=== PATIENT | male | born 1940 | race Caucasian/White ===

== ENCOUNTER 2024-12-21 02:44 | Inpatient (IN) | payer OTHER ==
[~2024-12-21] VITALS: Ht 170.2 cm; Wt 68.9 kg
[2024-12-21 02:55] VITALS: O2SAT 97
[2024-12-21 03:21] LABS: BASOPHILS % 0.5 % (0.0-2.0); EOSINOPHILS % 1.4 % (0.0-5.0); HEMATOCRIT. 41.9 % (42.0-52.0); HEMOGLOBIN. 14.4 g/dL (14.0-18.0); LYMPHOCYTES % 24.2 % (20.0-50.0); MEAN PLATELET VOLUME 9.1 fl (7.4-10.4); MONOCYTES % 5.5 % (2.0-8.0); NEUTROPHILS % 68.4 % (40.0-76.0); PLATELET 201 x1000/uL (130-400); RED BLOOD CELL COUNT 4.64 mill/uL (4.7-6.1); RED CELL DISTRIBUTION WIDTH 14.4 % (11.6-14.6)
[2024-12-21 04:03] LABS: CREATININE 0.8 mg/dL (0.6-1.3); UREA NITROGEN BLOOD 25 mg/dL (9-23)
[2024-12-21 04:04] LABS: ASPARTATE AMINOTRANSFERASE 27 IU/L (<34)
[2024-12-21 04:05] LABS: BILIRUBIN DIRECT 0.2 mg/dL (<=3.0); BILIRUBIN TOTAL 0.8 mg/dL (0.1-1.0); PROTEIN TOTAL 6.8 g/dL (6.0-8.3)
[2024-12-21 05:07] LABS: CLARITY URINE CLEAR (CLEAR); COLOR URINE YELLOW (YELLOW); GLUCOSE URINE NEGATIVE (NEGATIVE); KETONES URINE NEGATIVE (NEGATIVE); LEUKOCYTE ESTERASE URINE NEGATIVE (NEGATIVE); NITRITE URINE NEGATIVE (NEGATIVE); OCCULT BLOOD URINE NEGATIVE (NEGATIVE); PH URINE 6.0 (4.5-8.0); PROTEIN URINE TRACE (NEGATIVE); SPECIFIC GRAVITY URINE 1.020 (1.005-1.030); UROBILINOGEN URINE 0.2 E.U./dL (0.2-1.0)
[2024-12-21 05:28] LABS: RBC URINE 0-2 /hpf (0-2); SQUAMOUS EPITHELIAL CELL URINE NONE SEEN /lpf (RARE/1+); WBC URINE 0-2 /hpf (0-2)
[2024-12-21 05:29] LABS: BACTERIA URINE NONE SEEN
[2024-12-21 05:32] LABS: *AMPHETAMINES SCREEN URINE NEGATIVE (NEGATIVE); *BARBITURATES SCREEN URINE NEGATIVE (NEGATIVE); *BENZODIAZEPINES SCREEN URINE NEGATIVE (NEGATIVE); *COCAINE SCREEN URINE NEGATIVE (NEGATIVE); CANNABINOID URINE SCREEN NEGATIVE (NEGATIVE); ECSTASY MDMA SCREEN URINE NEGATIVE (NEGATIVE); METHADONE URINE SCREEN NEGATIVE (NEGATIVE); OPIATES URINE SCREEN NEGATIVE (NEGATIVE); PHENCYCLIDINE URINE SCREEN NEGATIVE (NEGATIVE)
[2024-12-21] MEDS ORDERED: ONDANSETRON HCL 4MG/2ML INJ IV PRN (07:45)
[2024-12-21] MEDS ORDERED: ACETAMINOPHEN 325MG TABLET PO PRN ×2 (07:45)
[2024-12-21] MEDS ORDERED: DEXTROSE 50% WATER 50ML SYRINGE IV PRN (07:45)
[2024-12-21] MEDS ORDERED: CLONIDINE 0.1MG TABLET PO PRN (07:45)
[2024-12-21] MEDS ORDERED: IPRATROPIUM/ALBUTEROL 0.5-3(2.5)MG/3ML NEB HHN PRN (07:45)
[2024-12-21] MEDS ORDERED: GUAIFENESIN 200MG/10ML SUGAR FREE UDC PO PRN (07:45)
[2024-12-21] MEDS ORDERED: DOCUSATE SODIUM 100MG CAPSULE PO PRN (07:45)
[2024-12-21 08:00] VITALS: BP 137/69; PULSE 107; RESP 18; TEMP 36.2; O2SAT 99
[2024-12-21] MEDS: PANTOPRAZOLE 40MG DR TABLET PO SCH (08:56)
[2024-12-21] MEDS: MULTIVITAMINS,THER W-MINERALS TABLET PO SCH (08:57)
[2024-12-21] MEDS: RISPERIDONE 0.5MG TABLET PO SCH ×2 (08:57→21:36)
[2024-12-21] MEDS: THIAMINE HCL 100MG TABLET PO SCH (08:57)
[2024-12-21] MEDS: AMLODIPINE 5MG TABLET PO SCH (08:58)
[2024-12-21] MEDS: ENOXAPARIN 40MG/0.4ML SYR SUBCUT SCH (09:02)
[2024-12-21] MEDS: BLOOD SUGAR DIAGNOSTIC STRIP TEST SCH (09:03)
[2024-12-21] MEDS: INSULIN LISPRO 100 UNITS/ML SUBCUT SCH (09:16)
[2024-12-21 10:00] VITALS: BP 133/69; PULSE 107; RESP 16; TEMP 36.1956
[2024-12-21] MEDS: HALOPERIDOL LACTATE 5MG/ML VIAL IM PRN (10:16)
[2024-12-21 12:32] LABS: INR 1.0
[2024-12-21 12:39] LABS: FOLIC ACID (FOLATE) SERUM > 20.00 ng/mL (>5.38); VITAMIN B12 SERUM 345 pg/mL (211-911)
[2024-12-21] MEDS: OLANZAPINE 10 MG/VIAL IM PRN (15:45)
[2024-12-21 16:00] VITALS: BP 155/75; RESP 20; TEMP 36.3; O2SAT 93
[2024-12-21] MEDS: LORAZEPAM 2MG/ML UD SYRINGE IV PRN (18:11)
[2024-12-21 20:00] VITALS: BP 153/64; PULSE 80; RESP 19; TEMP 36.3; O2SAT 96
[2024-12-21] MEDS ORDERED: OLANZAPINE 10 MG/VIAL IM SCH (20:00)
[2024-12-21] MEDS: TRAZODONE HCL 50MG TABLET PO SCH (21:37)
[2024-12-22] VITALS: BP 144/68; PULSE 103; RESP 20; TEMP 36.3; O2SAT 97
[2024-12-22 04:00] VITALS: BP 144/71; PULSE 95; RESP 19; O2SAT 96
[2024-12-22 08:00] VITALS: BP 140/66; PULSE 79; RESP 17; TEMP 36.5; O2SAT 97
[2024-12-22 12:00] VITALS: BP 130/61; PULSE 82; RESP 16; TEMP 36.5; O2SAT 98
[2024-12-22 13:56] LABS: BASOPHILS % 0.5 % (0.0-2.0); EOSINOPHILS % 1.9 % (0.0-5.0); HEMATOCRIT. 44.4 % (42.0-52.0); HEMOGLOBIN. 15.1 g/dL (14.0-18.0); LYMPHOCYTES % 20.4 % (20.0-50.0); MEAN PLATELET VOLUME 9.1 fl (7.4-10.4); MONOCYTES % 8.1 % (2.0-8.0); NEUTROPHILS % 69.1 % (40.0-76.0); PLATELET 201 x1000/uL (130-400); RED BLOOD CELL COUNT 4.84 mill/uL (4.7-6.1); RED CELL DISTRIBUTION WIDTH 14.1 % (11.6-14.6)
[2024-12-22 14:07] LABS: CREATININE 0.8 mg/dL (0.6-1.3); TRIGLYCERIDE 102 mg/dL (0-150); TROPONIN I HIGH SENSITIVITY 9 ng/L (3.0-53); UREA NITROGEN BLOOD 13 mg/dL (9-23)
[2024-12-22 14:08] LABS: LDL CHOLESTEROL 115 mg/dL (5-100); TROPONIN I HIGH SENSITIVITY 9 ng/L (3.0-53)
[2024-12-22 14:11] LABS: T4 FREE 1.06 ng/dL (0.89-1.76)
[2024-12-22 16:00] VITALS: BP 130/74; PULSE 78; RESP 17; TEMP 36.3; O2SAT 97
[2024-12-23] VITALS: BP 122/52; PULSE 81; RESP 18; TEMP 36.4; O2SAT 98
[2024-12-23 04:00] VITALS: BP 126/61; PULSE 78; RESP 17; TEMP 36.1; O2SAT 98
[2024-12-23 08:00] VITALS: BP 140/72; PULSE 81; RESP 16; TEMP 36.2; O2SAT 97
[2024-12-23] MEDS ORDERED: THIA100T72 PO (10:40)
[2024-12-23] MEDS ORDERED: AMLO5TAB88 PO (10:40)
[2024-12-23] MEDS ORDERED: RISP05 PO (10:40)
[2024-12-23] MEDS ORDERED: TRAZ-251 PO (10:40)
[2024-12-23 12:00] VITALS: BP 134/76; PULSE 83; RESP 18; TEMP 36.4; O2SAT 98
[2024-12-23 13:40] VITALS: BP 134/76; PULSE 83; RESP 18; TEMP 97.6
== END 2024-12-23 14:09 | disposition home or self-care (01) | DRG 885 ==
LOC: ER 03:55 → 7EST 04:01 → EDBEDREQTM 04:11 → EDBEDREQ 04:11 → ENRESERV 07:19 → 7EST 07:38
PROVIDERS: ADMIT Internal Medicine; ATTEND Internal Medicine
DX: F20.9 Schizophrenia, unspecified (principal); F03.918 Unspecified dementia, unspecified severity, with other behavioral disturbance; E11.9 Type 2 diabetes mellitus without complications; I10 Essential (primary) hypertension; Z79.4 Long term (current) use of insulin
CPT/HCPCS: 36415; 71045; 80048; 80061; 80076; 80305; 80307; 80320; 80329; 81003; 82040; 82140; 82550; 82607; 82746; 82962; 83036; 83930; 84439; 84443; 84484; 85025; 93005; 93970; 97116; 97161; 97166; 99285; A4606; J1630; J1650; J1815; J2060; J3490; G0480

== ENCOUNTER 2025-02-20 10:30 | Emergency (ER) | payer OTHER ==
[~2025-02-20] VITALS: Ht 167.6 cm; Wt 73.0 kg
[~2025-02-20 10:30] MED LIST: AMLO5TAB88 PO; RISP05 PO; THIA100T72 PO; TRAZ-251 PO
[2025-02-20 10:33] VITALS: O2SAT 97
[2025-02-20 12:09] VITALS: BP 145/64; PULSE 81; RESP 16; TEMP 36.6; O2SAT 99
== END 2025-02-20 12:45 | disposition home or self-care (01) ==
LOC: ER 10:30 → CMPBEDREQ 20:04
DX: G30.9 Alzheimer's disease, unspecified (principal); F02.811 Dementia in other diseases classified elsewhere, unspecified severity, with agitation; E11.9 Type 2 diabetes mellitus without complications; I10 Essential (primary) hypertension; Z79.899 Other long term (current) drug therapy
CPT/HCPCS: 99283